=== PATIENT | female | born 1975 | race Two or more races ===

== ENCOUNTER → 2016-11-10 | Outpatient (CLI) | payer SELFPAY | LOC: WI 11:36 | DX: Z12.31 Encounter for screening mammogram for malignant neoplasm of breast (principal) | CPT/HCPCS: 77067; G0202 ==

== ENCOUNTER → 2017-02-03 | Outpatient (CLI) | payer OTHER ==
[2017-02-03 09:42] LABS: ANION GAP 11 (5-19); BLOOD UREA NITROGEN 14 mg/dL (7-20); CARBON DIOXIDE 25 mmol/L (22-30); CHLORIDE 106 mmol/L (98-107); CREATININE RESULT 0.84 mg/dL (0.52-1.25); GLUCOSE 93 mg/dL (75-110); POTASSIUM 4.3 mmol/L (3.6-5.0); SODIUM 141.5 mmol/L (137-145)
== END ==
LOC: CCC 08:26
DX: E66.9 Obesity, unspecified (principal)
CPT/HCPCS: 36415; 80048; 83036; 84436; 84443